=== PATIENT | male | born 1950 | race Caucasian/White ===

== ENCOUNTER 2017-04-18 13:19 | Inpatient (IN) | payer MEDICARE ==
[~2017-04-18] VITALS: Ht 172.7 cm; Wt 94.3 kg
== END 2017-04-19 14:45 | disposition home or self-care (01) | DRG 203 ==
LOC: ER 13:19 → ICU 17:32
PROVIDERS: ADMIT Internal Medicine
DX: J40 Bronchitis, not specified as acute or chronic (principal); I48.0 Paroxysmal atrial fibrillation; I25.10 Atherosclerotic heart disease of native coronary artery without angina pectoris; Z95.5 Presence of coronary angioplasty implant and graft; I10 Essential (primary) hypertension; E11.9 Type 2 diabetes mellitus without complications; E78.5 Hyperlipidemia, unspecified; Z79.84 Long term (current) use of oral hypoglycemic drugs; Z79.82 Long term (current) use of aspirin; Z79.899 Other long term (current) drug therapy; Z82.49 Family history of ischemic heart disease and other diseases of the circulatory system; Z83.3 Family history of diabetes mellitus; Z80.9 Family history of malignant neoplasm, unspecified; Z91.19 Patient's noncompliance with other medical treatment and regimen; R07.9 Chest pain, unspecified; I25.2 Old myocardial infarction; Z87.891 Personal history of nicotine dependence
CPT/HCPCS: 36415; 93306; J0456; J0696; J1160; J1650

== ENCOUNTER 2017-04-18 13:19 | Emergency (ER) | payer MEDICARE | END 2017-04-18 17:57 | disposition critical access hospital (66) | LOC: ER 13:19 | DX: J18.9 Pneumonia, unspecified organism (principal); I48.91 Unspecified atrial fibrillation; R11.0 Nausea; I25.2 Old myocardial infarction; E11.9 Type 2 diabetes mellitus without complications; I10 Essential (primary) hypertension; Z87.891 Personal history of nicotine dependence; Z79.82 Long term (current) use of aspirin; Z79.84 Long term (current) use of oral hypoglycemic drugs; Z79.899 Other long term (current) drug therapy | CPT/HCPCS: 96361; 96365; 96366; 96368; 96375; 96376 ==